=== PATIENT | male | born 1940 | race American Indian/Alaskan Native ===

== ENCOUNTER 2017-05-14 16:02 | Emergency (ER) | payer MEDICARE, MEDICAID ==
[2017-05-14 16:03] VITALS: BMI 26.3
--- NOTE | 2017-05-14 16:58 | ED PDOC ---
HPI: Altered Mental Status Time Seen by Provider: 05/14/17 16:33 Chief Complaint (Nursing): Weakness/Neurological Deficit Chief Complaint (Provider): AMS History Per: Patient Additional Complaint(s): CC: AMS HPI: 76 y/o AA male with a PMH of alcohol abuse, HTN, Type 2 DM, and renal cell carcinoma, brought in by EMS increasing confusion at home for 2 weeks. According to live in girlfriend spoken to on the phone, pt has been increasingly agitated and has been throwing his outpatient medication. Pt had a CVA 2 weeks ago and was treated at [facility]. Pt is a poor historian and dependent on his GF for ADL . Past Medical History Reviewed: Historical Data, Nursing Documentation, Vital Signs Vital Signs: Last Vital Signs Temp Pulse 68 05/14/17 16:06 Resp 16 05/14/17 16:06 BP 125/75 05/14/17 16:06 Pulse Ox 99 05/14/17 16:06 - Medical History PMH: Arthritis, Dementia, Diabetes, HTN, Hypercholesterolemia, Malignancy ( renal CA), Chronic Kidney Disease, Seizures (1980s) - Family History Family History: States: Unknown Family Hx - Living Arrangements Living Arrangements: With Friends/Others (With live in girlfriend) - Social History Current smoker - smoking cessation education provided: No Alcohol: Other (former Alcoholic according to PMD) Drugs: Denies - Immunization History Hx Tetanus Toxoid Vaccination: No Hx Influenza Vaccination: Yes (08/2014) Hx Pneumococcal Vaccination: Yes (2012) - Home Medications Home Medications: Ambulatory Orders Medication Instructions Recorded SITagliptin [Januvia] 50 mg PO DAILY 05/07/17 Simvastatin 40 mg PO DAILY 05/07/17 Zolpidem [Ambien] 5 mg PO HS 05/07/17 Clopidogrel [Plavix] 75 mg PO DAILY #30 tab 05/12/17 Donepezil [Aricept] 5 mg PO HS #30 tab 05/12/17 Ferrous Sulfate [Iron] 325 mg PO BID #60 capsule.er 05/12/17 Multivitamins [Hexavitamin] 1 tab PO DAILY #30 tab 05/12/17 Thiamine [Vitamin B1 Tab] 100 mg PO BID #30 tab 05/12/17 cloNIDine [Catapres] 0.2 mg PO Q8 #90 tab 05/12/17 Famotidine [Pepcid] 20 mg PO BID tab 05/22/17 Insulin Aspart, Recombinant 0 unit SC ACHS unit 05/22/17 [Novolog] LORazepam [Ativan] 1 mg PO Q6H PRN tab 05/22/17 diltiaZEM CD [Cardizem CD] 180 mg PO DAILY cap 05/22/17 - Allergies Allergies/Adverse Reactions: Allergies Allergy/AdvReac Type Severity Reaction Status Date / Time acetaminophen [From Tylenol] Allergy Intermediate Tinnitus Verified 05/07/17 16: 43 aspirin Allergy Intermediate Tinnitus Verified 05/07/17 16:43 Review of Systems ROS Statement: Except As Marked, All Systems Reviewed And Found Negative Constitutional: Positive for: Weakness Physical Exam - Reviewed Nursing Documentation Reviewed: Yes Vital Signs Reviewed: Yes - Physical Exam Appears: Positive for: Well, Non-toxic, No Acute Distress Head Exam: Positive for: ATRAUMATIC, NORMAL INSPECTION, NORMOCEPHALIC Skin: Positive for: Normal Color, Warm, DRY Eye Exam: Positive for: EOMI, Normal appearance, PERRL ENT: Positive for: Normal ENT Inspection Neck: Positive for: Normal, Painless ROM Cardiovascular/Chest: Positive for: Regular Rate, Rhythm Respiratory: Positive for: CNT, Normal Breath Sounds Gastrointestinal/Abdominal: Positive for: Normal Exam, Bowel Sounds, Soft Back: Positive for: Normal Inspection Extremity: Positive for: Normal ROM Neurologic/Psych: Positive for: Alert, Oriented - Laboratory Results Result Diagrams: 05/14/17 17:00 05/14/17 17:00 - ECG O2 Sat by Pulse Oximetry: 99 Medical Decision Making Medical Decision Making: IV access established and diagnostics ordered. EKG: NSR at 71 bpm, no acyte ST changes, as read by ED MD CXR:NAD, as read by PAVikasC head CT: Atrophy and small vessel disease, no bleed; old right temporal infarct; age indeterminate ischemic change right frontal lobe Labs reviewed and case discussed with Pts PMD, Dr. Ortega, agreed Pt stable for discharge at this time. pt himself asking to go home back to his girlfriend. Disposition - Clinical Impression Clinical Impression: Weakness due to cerebrovascular accident, Anemia - Patient ED Disposition Is Patient to be Admitted: No - Disposition Disposition: Routine/Home Disposition Time: 19:00 Condition: STABLE Instructions: Weakness (ED)
[2017-05-14 17:18] LABS: BASO # 0.1 K/uL (0.0-0.2); BASO % 1.2 % (0.0-2.0); EOS # 0.2 K/uL (0.0-0.7); HEMATOCRIT 24.1 % (35.0-51.0); LYMPH # 1.5 K/uL (1.0-4.3); LYMPH % 15.6 % (20.0-40.0); MEAN CELL VOLUME 87.6 fl (80.0-94.0); MEAN CORPUSCULAR HEMOGLOBIN 28.4 pg (27.0-31.0); MEAN CORPUSCULAR HGB CONC 32.4 g/dL (33.0-37.0); MONO # 0.7 K/uL (0.0-0.8); MONO % 7.4 % (0.0-10.0); NEUT # 7.2 K/uL (1.8-7.0); NEUT % 73.8 % (50.0-75.0); RED CELL DISTRIBUTION WIDTH 15.7 % (11.5-14.5); WHITE BLOOD COUNT 9.7 K/uL (4.8-10.8)
[2017-05-14 17:41] LABS: ALCOHOL SERUM < 10 mg/dl (0-10); ALKALINE PHOSPHATASE 98 U/L (38-126); ALT/SGPT 33 U/L (21-72); AST/SGOT 46 U/L (17-59); BILIRUBIN,TOTAL 0.2 mg/dl (0.2-1.3); BLOOD UREA NITROGEN 16 mg/dl (9-20); CALCIUM 9.5 mg/dL (8.4-10.2); CARBON DIOXIDE 28 mmol/L (22-30); CHLORIDE 103 mmol/L (98-107); GFR AFRICAN-AMERICAN > 60; GLUCOSE,RANDOM 198 mg/dL (75-110); POTASSIUM 4.2 MMOL/L (3.6-5.0); SODIUM 139 mmol/l (132-148); TOTAL PROTEIN 7.2 G/DL (6.3-8.2)
[2017-05-14 17:50] LABS: ALB/GLOB RATIO 0.8 (1.0-2.1)
--- NOTE | 2017-05-14 18:30 | CT ---
EXAM: CT Head Without Intravenous Contrast CLINICAL HISTORY: 76 years old, male; Signs and symptoms; Altered mental status/memory loss; Confusion or disorientation; Patient HX: Alcohol abuse. Renal cell ca. ; Additional info: AMS. Sent phy. Doc. With request TECHNIQUE: Axial computed tomography images of the head/brain without intravenous contrast. This CT exam was performed using one or more of the following dose reduction techniques: automated exposure control, adjustment of the mA and/or kV according to patient size, and/or use of iterative reconstruction technique. Coronal and sagittal reformatted images were created and reviewed. EXAM DATE/TIME: 05/14/2017 4:57 PM COMPARISON: There are no prior studies for comparison. FINDINGS: Brain: There is dilatation of sulci gyri and ventricles. There is no midline shift. There is decreased attenuation in periventricular white matter. There is encephalomalacia in the right temporal lobe. There is geographic region of decreased attenuation are in the right frontal lobe. There are no focal masses. There are no focal hemorrhages. Beck-white differentiation is visualized. Ventricles: See above Bones: Cranial vault is intact. Orbits: There are no acute orbital abnormalities. There are postsurgical changes in the left orbital rim and left nasal bone Soft tissues: unremarkable Sinuses: There is no acute sinusitis. Ears and mastoids: Middle ears and mastoids are unremarkable. IMPRESSION: Atrophy and small vessel disease, no bleed; old right temporal infarct; age indeterminate ischemic change right frontal lobe Additional findings as described above.
[2017-05-14 22:43] VITALS: BP 157/98; PULSE 99; RESP 18; TEMP 98.2
--- NOTE | 2017-05-15 10:59 | RAD ---
PROCEDURE: CHEST RADIOGRAPH, 1 VIEW HISTORY: med screening COMPARISON: None available. FINDINGS: LUNGS: There is airspace disease in the right lower lobe. The left lung is clear. There are low lung volumes. PLEURA: Suspect small right pleural effusion. No large left pleural effusion. No pneumothorax. CARDIOVASCULAR: The heart is normal in size. Atherosclerotic aortic arch calcifications are present. OSSEOUS STRUCTURES: No significant abnormalities. VISUALIZED UPPER ABDOMEN: Normal. OTHER FINDINGS: There is elevation of the right hemidiaphragm. IMPRESSION: Findings are most compatible with right lower lobe atelectasis/pneumonia and also suspected is small right pleural effusion. Follow-up after medical management is recommended to ensure complete resolution.
--- NOTE | 2017-05-15 11:31 | CARD ---
APPROVED REPORT EKG Measurement Heart [id number] <Conclusion> Normal sinus rhythm Left axis deviation Minimal voltage criteria for LVH, may be normal variant Cannot rule out Anterior infarct, age undetermined Abnormal ECG
[2017-05-24 19:19] VITALS: O2SAT 99
== END 2017-05-14 23:30 | disposition home or self-care (01) ==
LOC: H.ER 16:02
DX: I63.9 Cerebral infarction, unspecified (principal); R53.1 Weakness; D64.9 Anemia, unspecified; E11.8 Type 2 diabetes mellitus with unspecified complications; I10 Essential (primary) hypertension; C64.9 Malignant neoplasm of unspecified kidney, except renal pelvis
CPT/HCPCS: 70450; 71010; 80053; 82140; 82948; 84484; 85025; 85610; 93005; 99285; G0480